=== PATIENT | female | born 1985 | race American Indian/Alaskan Native ===

== ENCOUNTER 2016-04-25 13:51 | Emergency (ER) | payer MEDICAID, MEDICARE ==
[2016-04-25 14:46] VITALS: BP 105/55
[2016-04-25] MEDS ORDERED: D5NS 0.2% 1,000 ML IV SCH (15:00)
--- NOTE | 2016-04-27 01:42 | ED Elopement Review ---
ED Pt Elopement review - Call Back decision Pt Call Back Decision: No action required
== END 2016-04-25 16:05 | disposition left against medical advice (07) ==
LOC: ED 13:51
DX: D57.00 Hb-SS disease with crisis, unspecified (principal); Z53.21 Procedure and treatment not carried out due to patient leaving prior to being seen by health care provider

== ENCOUNTER 2020-01-27 03:52 | Emergency (ER) | payer MEDICAID ==
[2020-01-27 06:58] VITALS: BP 109/48
== END 2020-01-27 04:00 | disposition left against medical advice (07) ==
LOC: ED 03:52
DX: D57.1 Sickle-cell disease without crisis (principal); Z53.21 Procedure and treatment not carried out due to patient leaving prior to being seen by health care provider